=== PATIENT | male | born 1990 | race Caucasian/White ===

== ENCOUNTER 2016-08-25 10:28 | Inpatient (IN) | payer BC ==
[2016-08-25] MEDS ORDERED: Sodium Chloride 0.9% 1000 ML 2,000 ML IV STA (10:37)
[2016-08-25] MEDS ORDERED: Sodium Chloride 0.9% 1000 ML 1,000 ML ONE ×4 (10:38→12:10)
[2016-08-25 10:59] LABS: VBG CARBOXYHEMOGLOBIN 5.2 % T HGB (0.0-6.9); VBG HCO3- 9.2 meq/L (22-28); VBG HEMOGLOBIN 15.5; VBG O2 SATURATION 71.8 (95-100); VBG POTASSIUM 5.6 (3.5-5.1)
[2016-08-25 11:00] LABS: Mean Cell Volume 94.9 fl (78-100); Mean Corpuscular Hemoglobin 30.5 pg (26-32); Mean Platelet Volume 10.3 fl (6-9.5); Platelet Count 434 K/mm3 (150-450); Red Blood Count 5.14 M/mm3 (4.1-5.6); Red Cell Distribution Width 14.8 % (11.5-14.0); White Blood Count 14.1 K/mm3 (4.0-10.5)
[2016-08-25 11:00] LABS: VBG pH 7.11 (7.32-7.42)
[2016-08-25] MEDS ORDERED: Zofran 4 MG/2 ML VIAL ONE (11:12)
[2016-08-25 11:14] LABS: ALBUMIN 4.3 g/dL (3.4-5.0); ANION GAP 37.8 MEQ/L (5-15); BILIRUBIN,TOTAL 0.8 mg/dL (0.2-1.0); MAGNESIUM 2.2 mg/dL (1.8-2.4); Potassium 5.5 mEq/L (3.5-5.1); Total Protein 8.3 gm/dL (6.4-8.2)
[2016-08-25] MEDS ORDERED: NovoLIN R IV ONE (11:14)
[2016-08-25] MEDS ORDERED: NOVOLIN R INSULIN (FOR DRIPS)** 100 UNITS in Sodium Chloride 0.9% 100 ML IVPB 100 ML IV SCH (11:15)
--- NOTE | 2016-08-25 11:20 | ERPHSYRPT ---
- History of Present Illness Time Seen by Provider: 08/25/16 11:18 Source: patient Exam Limitations: no limitations Patient Subjective Stated Complaint: pt reports being out of insulin since last night-states that his blood sugar was over 700 last night-reports all over pain- denies n/v/d-pt stating that his body is shutting down et he is going into cardiac arrest upon arrival Triage Nursing Assessment: pt pale warm et dry upon arrival-lungs clear-no retractions noted-cap refill 3 seconds-radial pulse [id number] questions Physician History: pt reports being out of insulin since last night-states that his blood sugar was over 700 last night-reports all over pain-denies n/v/d, c/o generalised bodyache Timing/Duration: yesterday Severity: severe Associated Symptoms: nausea, vomiting, loss of appetite, malaise, weakness, No chest pain, No fever, No syncope Allergies/Adverse Reactions: No Known Drug Allergies Allergy (Verified 08/25/16 10:44) Home Medications: Insulin Regular, Human [NovoLIN R] 20 unit SQ TID 08/25/16 [History] Hx Tetanus, Diphtheria Vaccination/Date Given: Yes Hx Influenza Vaccination/Date Given: No Hx Pneumococcal Vaccination/Date Given: No Immunizations Up to Date: Yes - Review of Systems Constitutional: Lethargy, Malaise, Weakness, No Fever, No Chills Eyes: No Symptoms Ears, Nose, & Throat: No Symptoms Respiratory: No Cough, No Dyspnea Cardiac: No Chest Pain, No Edema, No Syncope Abdominal/Gastrointestinal: No Abdominal Pain, No Nausea, No Vomiting, No Diarrhea Genitourinary Symptoms: No Dysuria Musculoskeletal: No Back Pain, No Neck Pain Skin: No Rash Neurological: No Dizziness, No Focal Weakness, No Sensory Changes Psychological: No Symptoms Endocrine: No Symptoms All Other Systems: Reviewed and Negative - Past Medical History Pertinent Past Medical History: Yes Endocrine Medical History: Diabetes Type I - Past Surgical History Past Surgical History: Yes Gastrointestinal: Appendectomy, Hernia Repair - Social History Smoking Status: Current every day smoker How long have you smoked: yrs Exposure to second hand smoke: No Drug Use: none Patient Lives Alone: No - Nursing Vital Signs Nursing Vital Signs: Initial Vital Signs Temperature 98.1 F Pulse Rate 117 Respiratory Rate 16 Blood Pressure [Right Arm] 126/64 Pain Intensity 10 - Physical Exam General Appearance: moderate distress, alert Eye Exam: PERRL/EOMI, eyes nml inspection Ears, Nose, Throat Exam: normal ENT inspection, TMs normal, pharynx normal, moist mucous membranes Neck Exam: normal inspection, non-tender, supple, full range of motion Respiratory Exam: normal breath sounds, lungs clear, No respiratory distress Cardiovascular Exam: regular rate/rhythm, normal heart sounds, normal peripheral pulses Gastrointestinal/Abdomen Exam: soft, normal bowel sounds, No tenderness, No mass Back Exam: normal inspection, normal range of motion, No CVA tenderness, No vertebral tenderness Extremity Exam: normal inspection, normal range of motion, pelvis stable Neurologic Exam: alert, oriented x 3, cooperative, normal mood/affect, nml cerebellar function, nml station & gait, sensation nml, No motor deficits Skin Exam: normal color, warm, dry, No rash Lymphatic Exam: No adenopathy SpO2: 100 Oxygen Delivery: Room Air - Course Nursing assessment & vital signs reviewed: Yes EKG Interpreted by Me: Sinus Tach Ordered Tests: Active Orders 24 hr Category Date Time Status Accucheck STAT Care 08/25/16 10:51 Active IV Insertion STAT Care 08/25/16 10:51 Active IV Insertion-2nd Peripheral STAT Care 08/25/16 11:47 Active Ice Chips Only TOLERATED Care 08/25/16 10:39 Active Clear Liquid Diet 08/25/16 Dinner Active ARTERIAL BLOOD GASES Urgent Lab 08/25/16 12:40 Ordered CBC W DIFF Stat Lab 08/25/16 10:30 Completed CMP Stat Lab 08/25/16 10:30 Completed Lactic Acid Urgent Lab 08/25/16 10:37 Completed Lactic Acid Urgent Lab 08/25/16 12:40 Ordered MAGNESIUM Stat Lab 08/25/16 10:30 Completed Manual Differential NC Stat Lab 08/25/16 10:30 Completed UA Stat Lab 08/25/16 10:38 Completed VENOUS BLOOD GAS Stat Lab 08/25/16 10:57 Completed Medication Summary Generic Name Dose Route Start Last Admin Trade Name Freq PRN Reason Stop Dose Admin Insulin Human Regular 100 101 mls @ 4.04 mls/hr 08/25/16 11:15 08/25/16 11:44 units/ Sodium Chloride IV 09/24/16 11:14 4.04 mls/hr .Q24H BRANDON Administration 4 UNITS/HR Sodium Chloride 1,000 mls @ 999 mls/hr 08/25/16 11:45 08/25/16 11:46 Sodium Chloride 0.9% 1000 Ml IV 08/25/16 12:45 999 mls/hr .Q1H1M STA Administration Sodium Chloride 1,000 mls @ 999 mls/hr 08/25/16 11:46 08/25/16 12:27 Sodium Chloride 0.9% 1000 Ml IV 08/25/16 12:46 999 mls/hr .Q1H1M STA Administration Discontinued Medications Generic Name Dose Route Start Last Admin Trade Name Freq PRN Reason Stop Dose Admin Sodium Chloride 2,000 mls @ 999 mls/hr 08/25/16 10:37 08/25/16 10:52 Sodium Chloride 0.9% 1000 Ml IV 08/25/16 12:37 999 mls/hr .Q2H1M STA Administration Sodium Chloride Confirm 08/25/16 10:38 Sodium Chloride 0.9% 1000 Ml Administered 08/25/16 10:39 Dose 1,000 mls @ ud .ROUTE .STK-MED ONE Sodium Chloride Confirm 08/25/16 11:12 Sodium Chloride 0.9% 1000 Ml Administered 08/25/16 11:13 Dose 1,000 mls @ ud .ROUTE .STK-MED ONE Sodium Chloride Confirm 08/25/16 11:31 Sodium Chloride 0.9% 1000 Ml Administered 08/25/16 11:32 Dose 1,000 mls @ ud .ROUTE .STK-MED ONE Sodium Chloride Confirm 08/25/16 12:10 Sodium Chloride 0.9% 1000 Ml Administered 08/25/16 12:11 Dose 1,000 mls @ ud .ROUTE .STK-MED ONE Insulin Human Regular 10 unit 08/25/16 11:14 08/25/16 11:24 Novolin R IV 08/25/16 11:15 10 unit STAT ONE Administration Insulin Human Regular Confirm 08/25/16 11:24 Novolin R Administered 08/25/16 11:25 Dose 10 unit .ROUTE .STK-MED ONE Morphine Sulfate 2 mg 08/25/16 11:31 08/25/16 11:41 Morphine Sulfate 2 Mg Inj IV 08/25/16 11:32 2 mg STAT ONE Administration Morphine Sulfate Confirm 08/25/16 11:39 Morphine Sulfate 2 Mg Inj Administered 08/25/16 11:40 Dose 2 mg .ROUTE .STK-MED ONE Ondansetron HCl Confirm 08/25/16 11:12 Zofran 4 Mg/2 Ml Vial Administered 08/25/16 11:13 Dose 4 mg .ROUTE .STK-MED ONE Ondansetron HCl 4 mg 08/25/16 11:22 08/25/16 11:25 Zofran 4 Mg/2 Ml Vial IV 08/25/16 11:23 4 mg STAT ONE Administration Lab/Rad Data: Laboratory Result Diagrams 08/25/16 10:30 08/25/16 10:30 Laboratory Results 08/25/16 08/25/16 08/25/16 Range/Units 10:57 10:38 10:37 WBC (4.0-10.5) K/mm3 RBC (4.1-5.6) M/mm3 Hgb (12.5-18.0) gm/dl Hct (42-50) % MCV (78-100) fl MCH (26-32) pg MCHC (32-36) g/dl RDW (11.5-14.0) % Plt Count (150-450) K/mm3 MPV (6-9.5) fl Segmented Neutrophils (36.-66.) % Lymphocytes (Manual) (24-44) % Differential Comment Platelet Estimate (NORMAL) VBG pH 7.11 L* (7.32-7.42) VBG pCO2 at Pat Temp 29 L (42-55) mm/Hg VBG pO2 at Pat Temp 38 (25-40) mm/Hg VBG HCO3 9.2 L* (22-28) meq/L VBG O2 Sat (Raudel) 71.8 L (95-100) VBG Base Excess -19.0 L (-2.0-2.0) VBG Hemoglobin 15.5 VBG Carboxyhemoglobin 5.2 (0.0-6.9) % T HGB POC Potassium 5.6 H (3.5-5.1) Sodium (136-145) mEq/L Potassium (3.5-5.1) mEq/L Chloride (98-107) mEq/L Carbon Dioxide (21-32) mEq/L Anion Gap (5-15) MEQ/L BUN (9-20) mg/dL Creatinine (0.55-1.30) mg/dl Estimated GFR ML/MIN Glucose (70-110) MG/DL Lactic Acid 3.7 H (0.4-2.0) Calcium (8.5-10.1) mg/dL Magnesium (1.8-2.4) mg/dL Total Bilirubin (0.2-1.0) mg/dL AST (15-37) U/L ALT (12-78) U/L Alkaline Phosphatase (46-116) U/L Serum Total Protein (6.4-8.2) gm/dL Albumin (3.4-5.0) g/dL Ur Collection Type CCMS Urine Color STRAW (YELLOW) Urine Appearance CLEAR (CLEAR) Urine pH 5.0 (5-6) Ur Specific [place] 1.010 (1.005-1.025) Urine Protein NEGATIVE (Negative) Urine Glucose (UA) 500 (NEGATIVE) mg/dL Urine Ketones >=160 (NEGATIVE) Urine Nitrite NEGATIVE (NEGATIVE) Urine Bilirubin NEGATIVE (NEGATIVE) Urine Urobilinogen 0.2 (0-1) mg/dL Urine WBC (Auto) NEGATIVE (NEGATIVE) Urine RBC (Auto) NEGATIVE (0-5) Alessio/ul Specimen Received 08/25 1230 08/25/16 08/25/16 Range/Units 10:30 10:30 WBC 14.1 H (4.0-10.5) K/mm3 RBC 5.14 (4.1-5.6) M/mm3 Hgb 15.7 (12.5-18.0) gm/dl Hct 48.8 (42-50) % MCV 94.9 (78-100) fl MCH 30.5 (26-32) pg MCHC 32.2 (32-36) g/dl RDW 14.8 H (11.5-14.0) % Plt Count 434 (150-450) K/mm3 MPV 10.3 H (6-9.5) fl Segmented Neutrophils 72 H (36.-66.) % Lymphocytes (Manual) 28 (24-44) % Differential Comment NORMAL Platelet Estimate NORMAL (NORMAL) VBG pH (7.32-7.42) VBG pCO2 at Pat Temp (42-55) mm/Hg VBG pO2 at Pat Temp (25-40) mm/Hg VBG HCO3 (22-28) meq/L VBG O2 Sat (Raudel) (95-100) VBG Base Excess (-2.0-2.0) VBG Hemoglobin VBG Carboxyhemoglobin (0.0-6.9) % T HGB POC Potassium (3.5-5.1) Sodium 131 L (136-145) mEq/L Potassium 5.5 H (3.5-5.1) mEq/L Chloride 89 L (98-107) mEq/L Carbon Dioxide 10.4 L* (21-32) mEq/L Anion Gap 37.8 H (5-15) MEQ/L BUN 30 H (9-20) mg/dL Creatinine 1.79 H (0.55-1.30) mg/dl Estimated GFR 50 ML/MIN Glucose 807 H* (70-110) MG/DL Lactic Acid (0.4-2.0) Calcium 10.1 (8.5-10.1) mg/dL Magnesium 2.2 (1.8-2.4) mg/dL Total Bilirubin 0.8 (0.2-1.0) mg/dL AST 32 (15-37) U/L ALT 47 (12-78) U/L Alkaline Phosphatase 177 H (46-116) U/L Serum Total Protein 8.3 H (6.4-8.2) gm/dL Albumin 4.3 (3.4-5.0) g/dL Ur Collection Type Urine Color (YELLOW) Urine Appearance (CLEAR) Urine pH (5-6) Ur Specific [place] (1.005-1.025) Urine Protein (Negative) Urine Glucose (UA) (NEGATIVE) mg/dL Urine Ketones (NEGATIVE) Urine Nitrite (NEGATIVE) Urine Bilirubin (NEGATIVE) Urine Urobilinogen (0-1) mg/dL Urine WBC (Auto) (NEGATIVE) Urine RBC (Auto) (0-5) Alesiso/ul Specimen Received - Progress Progress: improved Discussed with : Marquez Will see patient in: hospital (observation) Counseled pt/family regarding: lab results, diagnosis, need for follow-up, rad results - Departure Time of Disposition: 12:44 Departure Disposition: Observation Clinical Impression: Diabetic ketoacidosis associated with type 1 diabetes mellitus Qualifiers: Diabetes mellitus complication detail: without coma Qualified Code(s): E10.10 - Type 1 diabetes mellitus with ketoacidosis without coma Condition: Fair Critical Care Time: Yes Critical Care Time(excluding separately billable procedures): 30-74 minutes Referrals: DOCTOR,NO FAMILY [Primary Care Provider] -
[2016-08-25 11:21] LABS: Platelet Estimate NORMAL (NORMAL); Total Cells Counted 100
[2016-08-25] MEDS ORDERED: Zofran 4 MG/2 ML VIAL IV ONE (11:22)
[2016-08-25] MEDS ORDERED: NovoLIN R ONE (11:24)
[2016-08-25 11:29] LABS: Carbon Dioxide 10.4 mEq/L (21-32)
[2016-08-25] MEDS ORDERED: MORPHINE SULFATE 2 MG INJ IV ONE (11:31)
[2016-08-25] MEDS ORDERED: MORPHINE SULFATE 2 MG INJ ONE (11:39)
[2016-08-25] MEDS ORDERED: Sodium Chloride 0.9% 1000 ML 1,000 ML IV STA ×2 (11:45→11:46)
[2016-08-25 12:38] LABS: COMPLETE URINE MICROSCOPIC? NO; Collection Type CCMS
[2016-08-25 12:57] LABS: A-aADO2 2; ARTERIAL BLOOD GAS BASE EXCESS -20.1 (-2.0-2.0); ARTERIAL BLOOD GAS FIO2 21 %; ARTERIAL BLOOD GAS PO2 120 mmHg (75-100); Lactic Acid 3.5 (0.4-2.0)
[2016-08-25 12:58] LABS: ARTERIAL BLOOD GAS pH 7.13 (7.35-7.45)
[2016-08-25] MEDS ORDERED: Sodium Chloride 0.9% W/ 20 mEq KCl/LITER 1,000 ML IV ONE (13:13)
[2016-08-25] MEDS ORDERED: Sodium Chloride 0.9% W/ 20 mEq KCl/LITER 1,000 ML IV SCH ×2 (13:15→14:20)
[2016-08-25] MEDS ORDERED: Zofran 4 MG/2 ML VIAL IV PRN (14:20)
[2016-08-25] MEDS ORDERED: TYLENOL 325 MG PO PRN (14:20)
[2016-08-25] MEDS ORDERED: NovoLIN R SQ PRN (14:20)
[2016-08-25] MEDS ORDERED: NOVOLIN R INSULIN (FOR DRIPS)** 100 UNITS in Sodium Chloride 0.9% 100 ML IVPB 100 ML IV PRN (14:20)
[2016-08-25 14:41] LABS: Mean Cell Volume 92.8 fl (78-100); Mean Corpuscular Hemoglobin 30.7 pg (26-32); Mean Platelet Volume 9.4 fl (6-9.5); Platelet Count 345 K/mm3 (150-450); Red Cell Distribution Width 14.4 % (11.5-14.0); White Blood Count 14.7 K/mm3 (4.0-10.5)
[2016-08-25 15:00] LABS: ALBUMIN 3.2 g/dL (3.4-5.0); ALKALINE PHOSPHATASE 132 U/L (46-116); ANION GAP 26.9 MEQ/L (5-15); BILIRUBIN,TOTAL 0.3 mg/dL (0.2-1.0); BLOOD UREA NITROGEN 21 mg/dL (9-20); CHLORIDE 106 mEq/L (98-107); Direct Bilirubin 0.07 MG/DL (0.0-0.2); Glucose 210 MG/DL (70-110); MAGNESIUM 1.8 mg/dL (1.8-2.4); PHOSPHOROUS 3.2 mg/dL (2.6-4.7); Potassium 5.1 mEq/L (3.5-5.1); SGOT/AST 25 U/L (15-37); SGPT/ALT 39 U/L (12-78); SODIUM 140 mEq/L (136-145); Total Protein 6.7 gm/dL (6.4-8.2)
[2016-08-25] MEDS ORDERED: ROCEPHIN 1 Gm-D5w 50 ml Bag** 50 ML IV SCH (15:00)
[2016-08-25 15:04] LABS: Carbon Dioxide 11.7 mEq/L (21-32)
[2016-08-25] MEDS: Dextrose 5% -0.45 NaCl 1000 ML 1,000 ML IV SCH ×2 (16:59→23:16)
[2016-08-25] MEDS ORDERED: Nicoderm CQ 21 MG ONE (17:05)
[2016-08-25 18:40] LABS: ANION GAP 19.3 MEQ/L (5-15); BLOOD UREA NITROGEN 15 mg/dL (9-20); CHLORIDE 104 mEq/L (98-107); Carbon Dioxide 19.8 mEq/L (21-32); Glucose 149 MG/DL (70-110); Potassium 4.4 mEq/L (3.5-5.1); SODIUM 139 mEq/L (136-145)
[2016-08-25] MEDS ORDERED: Nicoderm CQ 21 MG TOP SCH (22:00)
[2016-08-25] MEDS: Pepcid 20 MG VIAL IV SCH (22:02)
[2016-08-25 22:56] LABS: ANION GAP 16.1 MEQ/L (5-15); BLOOD UREA NITROGEN 12 mg/dL (9-20); CHLORIDE 104 mEq/L (98-107); Carbon Dioxide 22.1 mEq/L (21-32); Glucose 158 MG/DL (70-110); Potassium 3.9 mEq/L (3.5-5.1); SODIUM 138 mEq/L (136-145)
[2016-08-26 03:05] LABS: Glucose 128 MG/DL (70-110)
[2016-08-26 03:06] LABS: ANION GAP 16.9 MEQ/L (5-15); BLOOD UREA NITROGEN 9 mg/dL (9-20); CHLORIDE 105 mEq/L (98-107); Carbon Dioxide 21.1 mEq/L (21-32); Potassium 3.7 mEq/L (3.5-5.1); SODIUM 139 mEq/L (136-145)
[2016-08-26] MEDS: Dextrose 5% -0.45 NaCl 1000 ML 1,000 ML IV SCH (05:42)
[2016-08-26 06:43] LABS: Mean Corpuscular Hemoglobin 30.2 pg (26-32); Mean Platelet Volume 9.2 fl (6-9.5); Platelet Count 333 K/mm3 (150-450); Red Blood Count 4.14 M/mm3 (4.1-5.6); Red Cell Distribution Width 14.8 % (11.5-14.0); White Blood Count 11.4 K/mm3 (4.0-10.5)
[2016-08-26 07:31] VITALS: BP 123/58; PULSE 105; O2SAT 98
[2016-08-26 08:18] LABS: ANION GAP 21.4 MEQ/L (5-15); BLOOD UREA NITROGEN 7 mg/dL (9-20); CHLORIDE 105 mEq/L (98-107); Carbon Dioxide 21.4 mEq/L (21-32); Glucose 151 MG/DL (70-110); Potassium 3.7 mEq/L (3.5-5.1); SODIUM 141 mEq/L (136-145)
[2016-08-26] MEDS: Pepcid 20 MG VIAL IV SCH (09:18)
[2016-08-26] MEDS ORDERED: NovoLIN R SQ ONE (09:30)
[2016-08-26] MEDS ORDERED: MILK OF MAGNESIA 30 ML PO ONE (10:00)
[2016-08-26] MEDS ORDERED: PROTONIX 40 MG IV IV SCH (10:00)
[2016-08-26 10:43] LABS: BLOOD UREA NITROGEN 7 mg/dL (9-20); CHLORIDE 102 mEq/L (98-107); Carbon Dioxide 21.1 mEq/L (21-32); Glucose 296 MG/DL (70-110); Potassium 3.7 mEq/L (3.5-5.1); SODIUM 137 mEq/L (136-145)
[2016-08-26] MEDS ORDERED: NovoLIN R SQ SCH (11:30)
--- NOTE | 2016-08-27 09:50 | HP ---
CHIEF COMPLAINT: Nausea and vomiting, abdominal pain, type 1 diabetic. HISTORY OF PRESENT ILLNESS: The patient is a 26 year-old white male patient who reports that he ran out of his insulin one day, and he began having problems with nausea and vomiting. He was unable to keep anything down. He did have a previous history of DKA. He was brought to the hospital, diagnosed with DKA and admitted to the Intensive Care Unit on the DKA protocol. PAST MEDICAL HISTORY: Significant for type 1 diabetes for many years. He reports he sees somebody over in [place] for his physician's care. SURGICAL HISTORY: Significant for appendectomy and hernia repair. HOME MEDICATIONS: The patient is currently on insulin 40 units of Novolin R 4x daily, he is on a second medication which he recently started, Trevmir, he takes in the morning as well. He reports he used to be on Levimir insulin. ALLERGIES: The patient reports NO KNOWN DRUG ALLERGIES. PHYSICAL EXAMINATION: GENERAL: Reveals a thin, white male patient, who is awake, alert and oriented x3. VITAL SIGNS: Most recent vital signs shows his temperature to be 97.8, pulse 87, respiratory rate 20, blood pressure 105/58. O2 saturations 97% on room air. HEENT: Normocephalic and atraumatic, pupils are equal, round, reactive to light, extraocular muscles intact. Oropharynx is pink and moist. NECK: Supple without lymphadenopathy, thyromegaly or JVD. CHEST: Clear to auscultation, good air movement bilaterally. HEART: Regular rate and rhythm without murmurs, rubs or gallops. ABDOMEN: Soft, minimally tender. No palpable masses. EXTREMITIES: Without cyanosis, clubbing or edema. LABS: From the ER reveal a white count of 14,100, hemoglobin 15.7, platelet count 434,000. His venous blood gas showed a pH of 7.11, cO2 of 38, lactic acid 3.7. His blood sugar was 807. BUN 20, creatinine 1.79. Sodium 131, potassium 5.5. Liver enzymes were normal. Urinalysis showed a specific gravity of 1.010, and ketones were greater than 160. ASSESSMENT: Diabetic ketoacidosis. The patient has been admitted to the hospital on the DKA protocol with an insulin drip. He is already doing much better and we will continue him on his usual medications now that he is able to eat again and we will watch his blood sugars carefully along with his BMP to monitor his acidosis.
== END 2016-08-26 11:15 | disposition home or self-care (01) | DRG 639 ==
LOC: ED 10:28 → ICU 14:12
PROVIDERS: ADMIT Family Medicine; ATTEND Family Medicine
DX: E10.10 Type 1 diabetes mellitus with ketoacidosis without coma (principal); Z79.4 Long term (current) use of insulin
CPT/HCPCS: 36000; 36415; 36600; 80048; 80053; 80076; 81002; 82375; 82803; 82805; 82962; 83036; 83605; 83735; 84100; 85025; 85027; 94770; 96374; 96375; 99285; J0696; J1815; J2270; J2405; A9270-GY